=== PATIENT | female | born 2000 | race Two or more races ===

== ENCOUNTER 2024-10-18 11:57 | Outpatient (CLI) | payer OTHER | END 2024-10-18 11:58 | disposition home or self-care (01) | LOC: PRENATAL 11:57 | PROVIDERS: ATTEND Obstetrics & Gynecology Maternal & Fetal Medicine | DX: O36.80X0 Pregnancy with inconclusive fetal viability, not applicable or unspecified (principal); Z36.82 Encounter for antenatal screening for nuchal translucency; Z14.8 Genetic carrier of other disease; Z3A.11 11 weeks gestation of pregnancy ==

== ENCOUNTER 2024-10-31 16:13 | Emergency (ER) | payer OTHER ==
[~2024-10-31] VITALS: Ht 165.1 cm; Wt 68.0 kg
== END 2024-10-31 21:34 | disposition home or self-care (01) ==
LOC: ER 16:16
DX: R10.2 Pelvic and perineal pain (principal); O99.891 Other specified diseases and conditions complicating pregnancy; Z3A.14 14 weeks gestation of pregnancy

== ENCOUNTER → 2024-12-13 10:58 | Outpatient (CLI) | payer OTHER | END | disposition home or self-care (01) | LOC: PRENATAL 10:58 | PROVIDERS: ATTEND Obstetrics & Gynecology Maternal & Fetal Medicine | DX: O35.00X0 Maternal care for (suspected) central nervous system malformation or damage in fetus, unspecified, not applicable or unspecified (principal); O35.3XX0 Maternal care for (suspected) damage to fetus from viral disease in mother, not applicable or unspecified; O44.00 Complete placenta previa NOS or without hemorrhage, unspecified trimester; Z3A.19 19 weeks gestation of pregnancy ==

== ENCOUNTER 2025-03-08 13:44 | Outpatient (CLI) | payer OTHER | END 2025-03-08 13:45 | disposition home or self-care (01) | LOC: PRENATAL 13:44 | PROVIDERS: ATTEND Obstetrics & Gynecology | DX: O26.849 Uterine size-date discrepancy, unspecified trimester (principal); O36.8199 Decreased fetal movements, unspecified trimester, other fetus; Z3A.32 32 weeks gestation of pregnancy ==

== ENCOUNTER 2025-03-27 18:11 | Outpatient (CLI) | payer OTHER ==
[2025-03-27 17:07] VITALS: BP 105/74
[2025-03-27 17:46] VITALS: BP 105/74
[2025-03-27] MEDS ORDERED: RINGERS SOLUTION,LACTATED 1,000 ML IV SCH (18:45)
[2025-03-27] MEDS ORDERED: PRENATAL + DHA1 EAC1 PO (18:59)
[2025-03-27 19:08] LABS: BASO % 0.5 % (0.1-1.2); EOS # 0.05 (0.04-0.54); EOS % 0.3 % (0.7-7.0); LYMPH # 2.10 (1.18-3.74); LYMPH % 11.5 % (19.3-53.1); MEAN PLATELET VOLUME 10.10 fl (9.4-12.4); MONO # 1.07 (0.24-0.82); MONO % 5.9 % (4.7-12.5); NEUT # 14.57 (1.56-6.13); NEUT % 79.7 % (34.0-71.1); RED CELL DISTRIBUTION WIDTH 12.9 % (11.6-14.4)
[2025-03-27 19:09] LABS: URINE APPEARANCE Cloudy; URINE BILIRRUBIN Negative (NEGATIVE); URINE BLOOD Negative; URINE COLOR Yellow; URINE GLUCOSE Negative (NEGATIVE); URINE KETONE Trace (NEGATIVE); URINE LEUKOCYTE Moderate; URINE NITRATE Negative; URINE PROTEIN Negative (NEGATIVE); URINE UROBILINOGEN 0.2 E.U./dl
[2025-03-27 19:12] LABS: URINE CAST 2.93 uL (0.0-1.40); URINE EPITHELIAL CELLS 40.9 uL (0.0-38.8); URINE RBC 33.5 uL (0.0-20.8); URINE WBC 282.9 uL (0.0-23.2)
[2025-03-27 19:53] LABS: TYPE CELLS SQUAMOUS; URINE BACTERIA > 9821.5 uL (0.0-1933); URINE MUCUS SCANT
[2025-03-27] MEDS ORDERED: CEFTRIAXONE SODIUM 1,000 MG VIAL IV ONE (20:00)
[2025-03-27] MEDS ORDERED: TERBUTALINE SULFATE 1 MG/ML AMPUL SUBCUTANEO PRN (20:15)
[2025-03-27] MEDS ORDERED: CLOTRIMAZOLE 45 GM TUBE VAG SCH (21:00)
[2025-03-27 23:16] VITALS: BP 96/65; O2SAT 98
[2025-03-28 03:18] VITALS: BP 94/56
[2025-03-28] MEDS ORDERED: TERBUTALINE SULFATE 1 MG/ML AMPUL SUBCUTANEO SCH (06:30)
[2025-03-28 06:36] VITALS: BP 97/67; O2SAT 98
[2025-03-28 11:13] VITALS: BP 91/62; O2SAT 100
[2025-03-28 15:30] VITALS: BP 111/74
[2025-03-28 16:32] VITALS: BP 111/74
== END 2025-03-28 16:34 | disposition home or self-care (01) ==
LOC: OBS/DEL 18:11
PROVIDERS: Obstetrics & Gynecology; ATTEND Student in an Organized Health Care Education/Training Program
DX: O26.893 Other specified pregnancy related conditions, third trimester (principal); O26.849 Uterine size-date discrepancy, unspecified trimester; O36.8199 Decreased fetal movements, unspecified trimester, other fetus; O60.00 Preterm labor without delivery, unspecified trimester; Z3A.34 34 weeks gestation of pregnancy

== ENCOUNTER 2025-04-15 17:35 | Outpatient (CLI) | payer OTHER ==
[~2025-04-15] VITALS: Ht 165.1 cm; Wt 77.1 kg
[~2025-04-15 17:35] MED LIST: PRENATAL + DHA1 EAC1 PO
[2025-04-15] MEDS ORDERED: RINGERS SOLUTION,LACTATED 1,000 ML IV SCH (18:00)
[2025-04-15 18:06] VITALS: BP 109/74
[2025-04-15 19:03] LABS: BASO % 0.6 % (0.1-1.2); EOS # 0.07 (0.04-0.54); EOS % 0.6 % (0.7-7.0); LYMPH # 1.43 (1.18-3.74); LYMPH % 11.4 % (19.3-53.1); MEAN PLATELET VOLUME 10.50 fl (9.4-12.4); MONO # 1.00 (0.24-0.82); MONO % 7.9 % (4.7-12.5); NEUT # 9.82 (1.56-6.13); NEUT % 77.9 % (34.0-71.1); RED CELL DISTRIBUTION WIDTH 12.8 % (11.6-14.4)
[2025-04-15 19:04] LABS: URINE APPEARANCE Clear; URINE BILIRRUBIN Negative (NEGATIVE); URINE BLOOD Negative; URINE COLOR Yellow; URINE GLUCOSE Negative (NEGATIVE); URINE LEUKOCYTE Small; URINE NITRATE Negative; URINE PROTEIN Trace (NEGATIVE); URINE UROBILINOGEN 1.0 E.U./dl
[2025-04-15 19:08] LABS: URINE BACTERIA 3999.4 uL (0.0-1933); URINE EPITHELIAL CELLS 36.9 uL (0.0-38.8); URINE RBC 19.3 uL (0.0-20.8); URINE WBC 60.1 uL (0.0-23.2)
[2025-04-15 19:23] LABS: INR 0.94
[2025-04-15 19:27] LABS: URINE CAST 0.58 uL (0.0-1.40); URINE KETONE 40 (NEGATIVE); URINE YEAST NEGATIVE /hpf
[2025-04-15 19:47] LABS: ALT/SGPT 39.0 U/L (12-78); AST/SGOT 21.0 U/L (15-37); BILIRUBIN TOTAL 0.58 mg/dL (0.3-1.2); BUN CREA RATIO 14.0 (7.0-25.0); CREATININE SERUM 0.58 mg/dL (0.55-1.02); GFR 127.72; GLOBULINA 3.8 G/DL (2.4-3.5); GLUCOSE FASTING 90.0 mg/dL (65-100); OSMOLALITY SERUM 279.0 MOSM/KG (275-295)
[2025-04-15] MEDS ORDERED: CEFAZOLIN SODIUM 1,000 MG VIAL IV SCH (22:15)
[2025-04-15 23:41] VITALS: BP 101/63; O2SAT 100
[2025-04-15 23:41] LABS: COVID-19 AG NEGATIVE (NEGATIVE)
[2025-04-16] MEDS ORDERED: AZITHROMYCIN 500 MG TABLET PO ONE (00:45)
[2025-04-16 03:12] VITALS: BP 106/67; O2SAT 98
[2025-04-16 07:26] VITALS: BP 116/77; O2SAT 100
[2025-04-16] MEDS ORDERED: AZITHROMYCIN250 MG PO (11:32)
[2025-04-16] MEDS ORDERED: CEPHALEXIN500 MG PO (11:33)
[2025-04-16 11:44] VITALS: BP 110/74
[2025-04-16 12:18] VITALS: BP 110/74
== END 2025-04-16 12:18 | disposition home or self-care (01) ==
LOC: OBS/DEL 17:35
PROVIDERS: Obstetrics & Gynecology; ATTEND Student in an Organized Health Care Education/Training Program
DX: O26.893 Other specified pregnancy related conditions, third trimester (principal); R50.9 Fever, unspecified; R05.9 Cough, unspecified; Z3A.36 36 weeks gestation of pregnancy

== ENCOUNTER 2025-04-18 13:45 | Inpatient (IN) | payer OTHER ==
[~2025-04-18] VITALS: Ht 165.1 cm; Wt 78.9 kg
[~2025-04-18 13:45] MED LIST changes: +AZITHROMYCIN250 MG PO; +CEPHALEXIN500 MG PO
[2025-04-18 15:48] LABS: BASO % 0.5 % (0.1-1.2); EOS # 0.07 (0.04-0.54); EOS % 0.5 % (0.7-7.0); LYMPH # 1.92 (1.18-3.74); LYMPH % 13.2 % (19.3-53.1); MEAN PLATELET VOLUME 10.10 fl (9.4-12.4); MONO # 0.90 (0.24-0.82); MONO % 6.2 % (4.7-12.5); NEUT # 11.28 (1.56-6.13); NEUT % 77.8 % (34.0-71.1); RED CELL DISTRIBUTION WIDTH 12.6 % (11.6-14.4)
[2025-04-18 15:50] LABS: URINE APPEARANCE Clear; URINE BILIRRUBIN Negative (NEGATIVE); URINE BLOOD Negative; URINE COLOR Yellow; URINE GLUCOSE Negative (NEGATIVE); URINE KETONE Negative (NEGATIVE); URINE LEUKOCYTE Negative; URINE NITRATE Negative; URINE PROTEIN Negative (NEGATIVE); URINE UROBILINOGEN 0.2 E.U./dl
[2025-04-18 15:53] LABS: URINE BACTERIA 28.7 uL (0.0-1933); URINE EPITHELIAL CELLS 31.8 uL (0.0-38.8); URINE RBC 6.1 uL (0.0-20.8); URINE WBC 9.5 uL (0.0-23.2)
[2025-04-18 16:10] LABS: INR 0.95
[2025-04-18 16:23] LABS: URINE CAST 0.00 uL (0.0-1.40)
[2025-04-18 16:39] LABS: ALT/SGPT 27.0 U/L (12-78); AST/SGOT 16.0 U/L (15-37); BILIRUBIN TOTAL 0.6 mg/dL (0.3-1.2); BUN CREA RATIO 18.0 (7.0-25.0); CREATININE SERUM 0.61 mg/dL (0.55-1.02); GFR 120.5; GLOBULINA 4.3 G/DL (2.4-3.5); GLUCOSE FASTING 76.0 mg/dL (65-100); OSMOLALITY SERUM 279.0 MOSM/KG (275-295)
[2025-04-26 09:34] VITALS: BP 121/80
[2025-04-26 10:04] LABS: BASO % 0.7 % (0.1-1.2); EOS # 0.07 (0.04-0.54); EOS % 0.5 % (0.7-7.0); LYMPH # 2.09 (1.18-3.74); LYMPH % 15.1 % (19.3-53.1); MEAN PLATELET VOLUME 10.60 fl (9.4-12.4); MONO # 0.97 (0.24-0.82); MONO % 7.0 % (4.7-12.5); NEUT # 10.36 (1.56-6.13); NEUT % 75.0 % (34.0-71.1); RED CELL DISTRIBUTION WIDTH 12.5 % (11.6-14.4)
[2025-04-26 10:05] LABS: URINE APPEARANCE Clear; URINE BILIRRUBIN Negative (NEGATIVE); URINE BLOOD Negative; URINE COLOR Yellow; URINE GLUCOSE Negative (NEGATIVE); URINE KETONE Negative (NEGATIVE); URINE LEUKOCYTE Trace; URINE NITRATE Negative; URINE PROTEIN Negative (NEGATIVE); URINE UROBILINOGEN 0.2 E.U./dl
[2025-04-26 10:09] LABS: URINE BACTERIA 1408.5 uL (0.0-1933); URINE EPITHELIAL CELLS 21.0 uL (0.0-38.8); URINE RBC 7.6 uL (0.0-20.8); URINE WBC 40.4 uL (0.0-23.2)
[2025-04-26] MEDS ORDERED: RINGERS SOLUTION,LACTATED 1,000 ML IV SCH (10:15)
[2025-04-26 10:24] LABS: URINE CAST 0.73 uL (0.0-1.40)
[2025-04-26 10:32] LABS: INR 0.94
[2025-04-26 10:42] LABS: ALT/SGPT 24.0 U/L (12-78); AST/SGOT 17.0 U/L (15-37); BILIRUBIN TOTAL 0.64 mg/dL (0.3-1.2); BUN CREA RATIO 15.0 (7.0-25.0); CREATININE SERUM 0.62 mg/dL (0.55-1.02); GFR 118.26; GLOBULINA 3.9 G/DL (2.4-3.5); GLUCOSE FASTING 102.0 mg/dL (65-100); OSMOLALITY SERUM 278.0 MOSM/KG (275-295)
[2025-04-26 11:18] VITALS: BP 126/83
[2025-04-26] MEDS ORDERED: MISOPROSTOL 25 MCG/4 ML GEL.W.APPL VAG ONE ×3 (12:00→22:30)
[2025-04-26 15:25] VITALS: BP 113/72
[2025-04-26] MEDS ORDERED: ACETAMINOPHEN 500 MG GEL..CAP PO ONE (19:00)
[2025-04-26 19:19] VITALS: BP 130/81
[2025-04-26] MEDS ORDERED: MISOPROSTOL 25 MCG/4 ML GEL.W.APPL ONE (22:07)
[2025-04-26 23:58] VITALS: BP 114/75
[2025-04-27] VITALS (8 sets, daily range): BP systolic 112–138; BP diastolic 64–88
[2025-04-27] MEDS ORDERED: MORPHINE SULFATE 4 MG/ML VIAL IV PRN ×2 (03:45→11:15)
[2025-04-27] MEDS ORDERED: OXYTOCIN 500 ML IV SCH (11:00)
[2025-04-27] MEDS ORDERED: CHLORHEXIDINE GLUCONATE 120 ML BOTTLE TOP ONE (12:59)
[2025-04-27] MEDS ORDERED: ERYTHROMYCIN BASE OPHT 1GM EACH TUBE OP ONE (12:59)
[2025-04-27] MEDS ORDERED: OXYTOCIN 20 UNITS/1000ML RL PIGGYBAG IV ONE (12:59)
[2025-04-27] MEDS ORDERED: LIDOCAINE HCL 1% 10ML VIAL ONE (12:59)
[2025-04-27] MEDS ORDERED: BENZOCAINE/MENTHOL 90 ML BOTTLE TOP PRN (14:15)
[2025-04-27] MEDS ORDERED: ACETAMINOPHEN 500 MG GEL..CAP PO PRN (14:15)
[2025-04-27] MEDS ORDERED: CHLORHEXIDINE GLUCONATE 120 ML BOTTLE TOP SCH (14:30)
[2025-04-27] MEDS ORDERED: OXYTOCIN 1,000 ML IV SCH (14:30)
[2025-04-28 01:45] VITALS: BP 137/84
[2025-04-28 06:49] LABS: BASO % 0.3 % (0.1-1.2); EOS # 0.09 (0.04-0.54); EOS % 0.4 % (0.7-7.0); LYMPH # 3.17 (1.18-3.74); LYMPH % 12.6 % (19.3-53.1); MEAN PLATELET VOLUME 10.50 fl (9.4-12.4); MONO # 1.70 (0.24-0.82); MONO % 6.8 % (4.7-12.5); NEUT # 19.82 (1.56-6.13); NEUT % 78.7 % (34.0-71.1); RED CELL DISTRIBUTION WIDTH 12.3 % (11.6-14.4)
[2025-04-28 08:20] VITALS: BP 118/79
[2025-04-28] MEDS ORDERED: PNV,CALCIUM 72/IRON/FOLIC ACID 1 TAB TABLET PO SCH (09:00)
[2025-04-28 16:29] VITALS: BP 131/86
[2025-04-28 21:03] VITALS: BP 115/64
[2025-04-29 01:28] VITALS: BP 139/89
[2025-04-29 08:26] VITALS: BP 130/80
[2025-04-29 15:29] VITALS: BP 143/86
== END 2025-04-29 15:03 | disposition home or self-care (01) | DRG 807 ==
LOC: LDR 04-26 09:17 → OB/GYN 04-27 13:48
PROVIDERS: Obstetrics & Gynecology; ADMIT Obstetrics & Gynecology; ATTEND Obstetrics & Gynecology
PROC: 3E0P7VZ Introduction of Hormone into Female Reproductive, Via Natural or Artificial Opening (ICD-10-PCS; 2025-04-26)
PROC: 4A1HXCZ Monitoring of Products of Conception, Cardiac Rate, External Approach (ICD-10-PCS; 2025-04-26)
PROC: 10E0XZZ Delivery of Products of Conception, External Approach (ICD-10-PCS; principal; 2025-04-27)
PROC: 0UQG7ZZ Repair Vagina, Via Natural or Artificial Opening (ICD-10-PCS; 2025-04-27)
PROC: 3E033VJ Introduction of Other Hormone into Peripheral Vein, Percutaneous Approach (ICD-10-PCS; 2025-04-27)
DX: O71.4 Obstetric high vaginal laceration alone (principal); Z37.0 Single live birth; Z3A.39 39 weeks gestation of pregnancy